=== PATIENT | male | born 1995 | race Caucasian/White ===

== ENCOUNTER 2017-01-08 07:55 | Emergency (ER) | payer OTHER ==
[2017-01-08 08:02] VITALS: BP 130/72; PULSE 83; TEMP 98.9; BMI 25.0
[2017-01-08] MEDS ORDERED: KETOROLAC TROMETHAMINE 30 MG/1 ML VIAL IM ONE (08:26)
[2017-01-08] MEDS ORDERED: CYCLOBENZAPRINE HCL 10 MG TABLET (FP) PO ONE (08:26)
--- NOTE | 2017-01-08 08:26 | PDOC ---
History of Present Illness - General Chief Complaint: Back Pain Stated Complaint: BACK PAIN Time Seen by Provider: 01/08/17 07:57 History Source: Patient Exam Limitations: No Limitations - History of Present Illness Initial Comments: 01/08/17 07:59 This is a 21 yo M who presents to the ER with his father due to back pain. PT states he was skateboarding yesterday at 5pm HE began to fall backwards and twisted to the right He developed back pain at that time He describes pain as sharp, rates it 10/10, worse with movement (particularly to the right), radiation to the buttocks No direct trauma to the back No IVDU No history of cancer No incontinence of urine or stool No prior episodes like this Pt mother purchased IcyHot for him, pt did not want to apply this At 3am, he allowed her to apply this to the area but awoke this morning with severe pain PMH: denies PSH: denies Meds: denies ALL: Penicillins Social: denies Drug use GENERAL/CONSTITUTIONAL: No: fever, chills, weakness, loss of appetite. HEAD, EYES, EARS, NOSE AND THROAT: No: change in vision, ear pain, discharge, sore throat, throat swelling. CARDIOVASCULAR: No: chest pain, lightheadedness, palpitations, syncope RESPIRATORY: No: cough, shortness of breath, wheezing, hemoptysis, stridor. GASTROINTESTINAL: No: nausea, vomiting, diarrhea, abdominal cramping, rectal bleeding, constipation. GENITOURINARY: No: dysuria, hematuria, frequency, urgency, flank pain. MUSCULOSKELETAL: Yes: back pain No: neck pain, joint pain, muscle swelling or pain SKIN: No: lesions, pallor, rash or easy bruising. NEUROLOGIC: No: headache, vertigo, paresthesias, weakness ENDOCRINE: No: unexplained weight gain or loss HEMATOLOGIC/LYMPHATIC: No: anemia, easy bleeding, swelling nodes. GENERAL: The patient is in no acute distress. HEAD: Normal with no signs of trauma. EYES: PERRLA, EOMI, sclera anicteric, conjunctiva clear. ENT: Ears normal, nares patent, oropharynx clear without exudates. Moist mucous membranes. NECK: Normal range of motion, supple without midline tenderness LUNGS: Breath sounds equal, clear to auscultation bilaterally. No wheezes, and no crackles. HEART:Regular rate and rhythm, normal S1 and S2 without murmur, rub or gallop. ABDOMEN: Soft, nontender, normoactive bowel sounds. No guarding, no rebound. No masses palpable. EXTREMITIES: Normal range of motion, no edema. No clubbing or cyanosis. No erythema, or tenderness. NEUROLOGICAL: Cranial nerves II through XII grossly intact. Normal speech. No focal neurological deficits. MUSCULOSKELETAL: (+) midline lumbar tenderness to palpation, (+) straight leg raise Ambulatory with an antalgic gait, able to walk on heels and toes Reflexes intact Sensation in tact in lower extremity SKIN: Warm, Dry, normal turgor, no rashes or lesions noted. 01/08/17 08:28 Past History - Past Medical History Allergies/Adverse Reactions: Allergies Allergy/AdvReac Type Severity Reaction Status Date / Time amoxicillin AdvReac Intermediate Hives Verified 01/08/17 07:58 Penicillins AdvReac Hives Verified 01/08/17 07:58 Home Medications: Ambulatory Orders Ibuprofen [Motrin -] 600 mg PO TID PRN #30 tablet 01/08/17 Methocarbamol [Robaxin -] 500 mg PO TID PRN #21 tablet 01/08/17 Medical Decision Making - Medical Decision Making 01/08/17 08:33 Will give anti inflammatory, Will give muscle relaxant Will do xray Will ask pt to follow up with Ortho for re assessment NO SKATEBOARDING until pain resolved *DC/Admit/Observation/Transfer Diagnosis at time of Disposition: Lumbar pain with radiation down right leg - Discharge Dispostion Disposition: HOME Condition at time of disposition: Stable Admit: No - Prescriptions Prescriptions: Ibuprofen [Motrin -] 600 mg PO TID PRN #30 tablet PRN Reason: Back Pain Methocarbamol [Robaxin -] 500 mg PO TID PRN #21 tablet PRN Reason: back pain/stiffness - Referrals Referrals: Natanael Shoemaker MD [Staff Physician] - - Patient Instructions Printed Discharge Instructions: DI for Low Back Pain, Low Back Pain, Back Pain (Alternative Therapy), DI for Back Pain With Sciatica Additional Instructions: Gurmeet Thank you for coming in to the ER today Please avoid any further injury to your back Please take medications as prescribed (motrin/ibuprofen should be taken with food or milk to avoid gastritis) Please follow up with the Nurse Unit Manager within 1-2 weeks Please also, follow up with your Primary care physician Return to the ER at any time for any worsening symptom, new symptoms, any concerns or complaints - Post Discharge Activity Work/School Note: Back to School
[2017-01-08] MEDS ORDERED: CYCLOBENZAPRINE HCL 10 MG TABLET (FP) ONE (08:31)
[2017-01-08] MEDS ORDERED: KETOROLAC TROMETHAMINE 30 MG/1 ML VIAL ONE (08:31)
== END 2017-01-08 09:32 | disposition home or self-care (01) ==
LOC: FER 07:55
PROC: 3E0233Z Introduction of Anti-inflammatory into Muscle, Percutaneous Approach (ICD-10-PCS; principal; 2017-01-08)
DX: M54.5 Low back pain (principal); M79.604 Pain in right leg; W18.30XA Fall on same level, unspecified, initial encounter; Y93.51 Activity, roller skating (inline) and skateboarding; Y92.410 Unspecified street and highway as the place of occurrence of the external cause
CPT/HCPCS: 72100-TC; 99282-25

== ENCOUNTER 2017-09-20 15:30 | Emergency (ER) | payer OTHER ==
[2017-09-20 15:42] VITALS: BP 137/69; PULSE 65; TEMP 97.5; BMI 23.1
--- NOTE | 2017-09-20 15:47 | PDOC ---
History of Present Illness - General History Source: Patient Exam Limitations: No Limitations <Narcisa Roque - Last Filed: 09/20/17 18:10> - History of Present Illness Initial Comments: 09/20/17 16:09 The patient is a 22 year old male, with no significant past medical history, who presents to the emergency department with nausea, cough and bilateral headache for about 5 days. He states he has experienced nasal congestion for about 1 week. He reports feeling nauseous with his last episode of emesis about 30 minutes prior to presentation. He reports about five episodes of emesis today , followed by multiple episodes of dry heaving. The patient also reports his cough is productive of yellowish brownish sputum, however, states his episodes of emesis were not triggered by excessive coughing. He reports his constant headache is the most bothersome symptoms today, localized to the sides of his head, bilaterally. He reportedly took Tylenol with a bottle of water, however, states he vomited immediately after. The patient reports his girlfriend had pneumonia about 2 weeks ago. He denies chest pain, shortness of breath, and dizziness. He denies fever, chills, diarrhea and constipation. He denies dysuria, frequency, urgency and hematuria. Allergies: amoxicillin, penicillin Social history: quit tobacco x1 month ago <Gay Mederos - Last Filed: 09/20/17 18:19> - General Chief Complaint: Nausea/Vomiting Stated Complaint: COLD SYMPTOMS, N/V Past History - Past Medical History COPD: No - Immunization History Immunization Up to Date: Yes - Suicide/Smoking/Psychosocial Hx Smoking History: Never smoked Have you smoked in the past 12 months: No If you are a former smoker, when did you quit?: 1 MONTH AGO Information on smoking cessation initiated: Yes Hx Alcohol Use: Yes (OCCASIONAL) Drug/Substance Use Hx: No Substance Use Type: None <Narcisa Roque - Last Filed: 09/20/17 18:10> <Gay Mederos - Last Filed: 09/20/17 18:19> - Past Medical History Allergies/Adverse Reactions: Allergies Allergy/AdvReac Type Severity Reaction Status Date / Time amoxicillin AdvReac Intermediate Hives Verified 01/08/17 07:58 Penicillins AdvReac Hives Verified 01/08/17 07:58 Home Medications: Ambulatory Orders Ibuprofen [Motrin -] 600 mg PO TID PRN #90 tablet MDD 3 09/20/17 Ondansetron [Zofran *Odt*] 8 mg PO TID PRN #15 tab.rapdis MDD 3 09/20/17 Review of Systems - Review of Systems Able to Perform ROS?: Yes Comments:: 09/20/17 16:10 GENERAL/CONSTITUTIONAL: No fever or chills. No weakness. HEAD, EYES, EARS, NOSE AND THROAT: (+) nasal congestion. No change in vision. No ear pain or discharge. No sore throat. CARDIOVASCULAR: No chest pain or shortness of breath. RESPIRATORY: (+) productive cough, No wheezing, or hemoptysis. GASTROINTESTINAL: (+) nausea, vomiting, No diarrhea or constipation. GENITOURINARY: No dysuria, frequency, or change in urination. MUSCULOSKELETAL: No joint or muscle swelling or pain. No neck or back pain. SKIN: No rash NEUROLOGIC: (+) headache, No vertigo, loss of consciousness, or change in strength/sensation. ENDOCRINE: No increased thirst. No abnormal weight change. HEMATOLOGIC/LYMPHATIC: No anemia, easy bleeding, or history of blood clots. ALLERGIC/IMMUNOLOGIC: No hives or skin allergy. <Gay Mederos - Last Filed: 09/20/17 18:19> *Physical Exam - Vital Signs Last Vital Signs Temp Pulse Resp BP Pulse Ox 97.5 F L 65 15 137/69 100 09/20/17 15:35 09/20/17 15:35 09/20/17 15:35 09/20/17 15:35 09/20/17 15:35 <Narcisa Roque - Last Filed: 09/20/17 18:10> - Vital Signs Last Vital Signs Temp Pulse Resp BP Pulse Ox 97.5 F L 65 15 137/69 100 09/20/17 15:35 09/20/17 15:35 09/20/17 15:35 09/20/17 15:35 09/20/17 15:35 - Physical Exam Comments: 09/20/17 16:11 GENERAL: Awake, alert, and fully oriented, in no acute distress HEAD: No signs of trauma EYES: PERRLA, EOMI, sclera anicteric, conjunctiva clear ENT: Auricles normal inspection, hearing grossly normal, nares patent, oropharynx clear withoutexudates. Moist mucosa NECK: Normal ROM, supple, no lymphadenopathy, JVD, or masses LUNGS: (+) crackle at left lung base. Good respiratory effort. Breath sounds equal, No wheezes HEART: Regular rate and rhythm, normal S1 and S2, no murmurs, rubs or gallops ABDOMEN: Soft, nontender, normoactive bowel sounds. No guarding, no rebound. No masses EXTREMITIES: Normal range of motion, no edema. No clubbing or cyanosis. No cords, erythema, or tenderness NEUROLOGICAL: Cranial nerves II through XII grossly intact. Normal speech, normal gait SKIN: Warm, Dry, normal turgor, no rashes or lesions noted. <Gay Mederos - Last Filed: 09/20/17 18:19> ED Treatment Course - LABORATORY CBC & Chemistry Diagram: 09/20/17 16:20 09/20/17 16:20 <Narcisa Roque - Last Filed: 09/20/17 18:10> - LABORATORY CBC & Chemistry Diagram: 09/20/17 16:20 09/20/17 16:20 - RADIOLOGY Radiograph Interpretation: 09/20/17 18:19 Preliminary CXR interpretation by Dr. Roque Impression: No acute disease or abnormalities. <Gay Mederos - Last Filed: 09/20/17 18:19> Medical Decision Making - Medical Decision Making 09/20/17 16:06 22-year-old male no past medical history here today complaining of cough congestion and cold-like symptoms 1 week now stay with nausea vomiting 5. Patient states that he does have a sick contact girlfriend had pneumonia 2 weeks ago denies any fevers chills has had several episodes of nonbloody nonbilious vomiting today. Cough is productive of some yellowish brownish tinted sputum does have prior tobacco use but quit 1 month no abdominal pain also complaining of a mild headache On exam is awake alert no acute distress mild dry mucous membranes lung exam is noted for some crackles at the left lung base no wheezing normal respiratory effort O2 saturation is normal as his respiratory rate. Cardiac cardiac exam is regular rate and rhythm no murmurs rubs or gallops abdomen soft nontender skin is warm and dry no rash Differential diagnosis includes pneumonia, viral URI or bronchitis, gastritis dehydration hypokalemia plan IV hydration and antiemetics chest x-ray to evaluate for pneumonia CBC electrolytes antiemetics and reassessment 09/20/17 18:11 Patient feeling improved history negative labs on for mild elevation of white count tolerating by mouth here in the ED we'll discharge home with a prescription for Zofran and follow up with his primary care doctor within the next few days <Narcisa Roque - Last Filed: 09/20/17 18:10> *DC/Admit/Observation/Transfer - Discharge Dispostion Admit: No <Narcisa Roque - Last Filed: 09/20/17 18:10> - Attestations Scribe Attestion: 09/20/17 16:11 Documentation prepared by Gay Mederos, acting as medical insurance coder for Narcisa Roque MD, <Gay Mederos - Last Filed: 09/20/17 18:19> Diagnosis at time of Disposition: Viral URI, Viral gastritis - Discharge Dispostion Condition at time of disposition: Improved - Prescriptions Prescriptions: Ibuprofen [Motrin -] 600 mg PO TID PRN #90 tablet MDD 3 PRN Reason: Pain Ondansetron [Zofran *Odt*] 8 mg PO TID PRN #15 tab.rapdis MDD 3 PRN Reason: Nausea - Referrals Referrals: Brandan Downey [Primary Care Provider] - - Patient Instructions Printed Discharge Instructions: Gastritis, DI for Vomiting -- Adult Additional Instructions: You can take Zofran 8 mg every 8 hours as needed for nausea or vomiting. Take ibuprofen 600 milligrams every 8 hours as needed for headache. He can also take Tylenol 500 mg every 6 hours as needed for pain or headache. Return to the ED or your primary care doctor for persistent vomiting, high fevers, feeling lightheaded or any concerns. Follow-up the primary care doctor within the next week all to schedule. - Post Discharge Activity
[2017-09-20] MEDS ORDERED: ONDANSETRON 4 MG/2 ML VIAL IVPUSH ONE (15:58)
[2017-09-20] MEDS ORDERED: SODIUM CHLORIDE 0.9% 1000 ML INFUS.BAG IV ONE (15:58)
[2017-09-20] MEDS ORDERED: ACETAMINOPHEN 1000 MG/100 ML VIAL (NON FORMULARY) IVPB ONE (15:58)
[2017-09-20] MEDS ORDERED: ACETAMINOPHEN INJECTION 100 ML IVPB ONE (16:16)
[2017-09-20] MEDS ORDERED: ONDANSETRON 4 MG/2 ML VIAL ONE (16:16)
[2017-09-20 16:48] LABS: BASOPHIL 0.3 % (0-2.0); EOSINOPHIL 0.2 % (0-4.5); MCH 29.1 pg (25.7-33.7); MCHC 33.7 g/dl (32.0-35.9); MEAN CELL VOLUME 86.2 fl (80-96); NEUTROPHILS 86.1 % (42.8-82.8); PLATELET COUNT 225 K/MM3 (134-434); RDW 12.1 % (11.9-15.9); WHITE BLOOD COUNT 13.9 K/mm3 (4.0-10.8)
[2017-09-20 18:32] LABS: ALBUMIN 5.4 g/dl (3.5-5.0); ALK PHOS 42 U/L (32-92); ANION GAP 11 (8-16); BILIRUBIN,TOTAL 0.9 mg/dl (0.2-1.0); CALCIUM 9.6 mg/dl (8.4-10.2); CO2 26 mmol/L (22-28); CREATININE 0.8 mg/dl (0.6-1.3); GLUCOSE,RANDOM 65 mg/dl (74-106); SGOT/AST 24 U/L (10-42); SGPT/ALT 16 U/L (10-40); TOT PROT 8.7 g/dl (6.4-8.3)
== END 2017-09-20 18:51 | disposition home or self-care (01) ==
LOC: FER 15:30
PROC: 3E0337Z Introduction of Electrolytic and Water Balance Substance into Peripheral Vein, Percutaneous Approach (ICD-10-PCS; principal; 2017-09-20)
PROC: 3E03329 Introduction of Other Anti-infective into Peripheral Vein, Percutaneous Approach (ICD-10-PCS; 2017-09-20)
PROC: 3E033GC Introduction of Other Therapeutic Substance into Peripheral Vein, Percutaneous Approach (ICD-10-PCS; 2017-09-20)
DX: J06.9 Acute upper respiratory infection, unspecified (principal); A08.4 Viral intestinal infection, unspecified
CPT/HCPCS: 36415; 71020-TC; 80053; 85025; 87040; 99283-25